=== PATIENT | female | born 1985 | race Caucasian/White ===

== ENCOUNTER → 2020-06-06 | Outpatient (CLI) | payer OTHER | END | disposition home or self-care (01) | LOC: LABWHC1 10:27 | PROVIDERS: ATTEND Dermatology | DX: L70.0 Acne vulgaris (principal) | CPT/HCPCS: 36415; 84702 ==

== ENCOUNTER → 2020-07-04 | Outpatient (CLI) | payer OTHER ==
[2020-07-04 14:29] LABS: HCT 39.7 % (34.0-46.0); HGB 13.2 gm/dL (11.4-16.0); MCH 31.3 pg (25.0-35.0); MCHC 33.2 g/dL (31.0-37.0); MCV 94.2 fL (80.0-100.0); Mean Platelet Volume 8.1; Platelet Count 251 k/uL (150-450); RBC 4.21 m/uL (3.80-5.40); WBC 4.1 k/uL (3.8-10.6)
[2020-07-04 20:06] LABS: ALT 17 U/L (8-44); AST 22 U/L (13-35); African American GFR (CKD) 139.8 (60.0-200.0); Albumin/Globulin Ratio 2.13 (1.60-3.17); Alkaline Phosphatase 105 U/L (41-126); BUN/Creat Ratio 13.33 Ratio (12.00-20.00); Calcium 9.6 mg/dL (8.7-10.3); Carbon Dioxide 25.2 mmol/L (21.6-31.8); Chloride 107 mmol/L (96-109); Globulin 2.3 g/dL (1.6-3.3); Glucose 86 mg/dL (70-110); Non-African American GFR(CKD) 120.6 (60.0-200.0); Potassium 4.4 mmol/L (3.5-5.5); Sodium 139 mmol/L (135-145); Total Bilirubin 0.5 mg/dL (0.3-1.2); Total Protein 7.2 g/dL (6.2-8.2)
[2020-07-04 20:32] LABS: HCG,Quantitative Serum <2.0 mIU/mL
[2020-07-04 20:52] LABS: HIV 2 AB Non-Reactive (Non-Reactive); HIV AB P24 Non-Reactive (Non-Reactive); HIV P24 AG Non-Reactive (Non-Reactive)
[2020-07-05 03:18] LABS: INR 0.97 (0.90-1.11); Partial Thromboplastin Time 29.5 sec (23.5-31.0); Prothrombin Time 10.5 sec (9.9-11.9)
== END | disposition home or self-care (01) ==
LOC: LABWHC1 12:12
PROVIDERS: ATTEND Plastic Surgery
DX: Z01.812 Encounter for preprocedural laboratory examination (principal)
CPT/HCPCS: 36415; 80053; 84702; 85027; 85610; 85730; 86803; 87390

== ENCOUNTER → 2022-03-13 | Outpatient (CLI) | payer BC ==
--- NOTE | 2022-03-13 14:06 | MM ---
Reason for Exam: Clinical finding. Baseline mammogram. Indicated Problems: Pain of the left side (Global) for 2 Month(s) : WITH PRESSURE. Patient History: Menarche at age 14. Patient has no children. Premenopausal. Last menstrual period: 02/27/2022 Prior Study Comparison: Patient's first Mammogram. Tissue Density: The breast tissue is extremely dense which could obscure a lesion on mammography. Findings: Analyzed By CAD. There are bilateral axillary lymph nodes are present. No suspicious focal distortion or group of microcalcifications in either breast. Overall Assessment: Incomplete: need additional imaging evaluation, BI-RAD 0 Management: Diagnostic Breast Ultrasound of the left breast. Targeted ultrasound left breast focal pain and background extremely dense tissue. Electronically signed and approved by: Owen Small M.D.
--- NOTE | 2022-03-13 14:35 | USB ---
Reason for Exam: Additional evaluation requested from abnormal screening. Patient History: Menarche at age 14. Patient has no children. Premenopausal. Technique: Method: Targeted. Findings: The lower outer quadrant of the left breast, the axilla of the left breast and the retroareolar of the left breast were scanned. Targeted ultrasound shows simple appearing 8 x 4 x 6 mm thin-walled cysts 6:00 position 4 cm distance from nipple and a larger 12 mm thin-walled cyst with thin septa 8:00 position 2 cm distance from nipple. No concerning solid mass. Overall Assessment: Benign, BI-RAD 2 Management: Screening Mammogram of both breasts at age 42. Findings consistent overall fibrocystic change. Manage patient's pain on clinical basis. Return to routine follow-up. Patient told the findings and recommendation at time of dictation. Electronically signed and approved by: Owen Small M.D.
== END | disposition home or self-care (01) ==
LOC: RADMAMWWP 13:26
PROVIDERS: ATTEND Obstetrics & Gynecology
DX: R92.8 Other abnormal and inconclusive findings on diagnostic imaging of breast (principal); N64.4 Mastodynia
CPT/HCPCS: 77066

== ENCOUNTER → 2023-12-23 | Outpatient (CLI) | payer OTHER ==
--- NOTE | 2023-12-23 13:52 | MM ---
Reason for Exam: Clinical finding. Last mammogram was performed 1 year(s) and 9 month(s) ago. Indicated Problems: Pain of the left side (Global) for 2 Year(s). Patient History: Menarche at age 14. Patient has no children. Premenopausal. Patient used Hormonal Contraceptives for 1 year. Last menstrual period: 12/16/2023 Risk Values: Lindsay 5 year model risk: 0.4%. NCI Lifetime model risk: 11.3%. Prior Study Comparison: 03/13/2022 Bilateral MG diagnostic mammo w CAD [place], [facility]. 03/13/2022 Left US breast limited , [facility]. Tissue Density: The breasts are extremely dense, which lowers the sensitivity of mammography. Findings: Analyzed By CAD. The pattern is symmetrical. No significant interval change is evident. On the mediolateral oblique view there is a 0.6 cm oval density with partially obscured margins 7 cm nipple lower outer aspect left breast. Patient complains of breast pain across the lower quadrants of the left breast. Right breast:No suspicious groups of microcalcifications, spiculated or lobular masses, architectural distortion or other secondary signs of malignancy are mammographically apparent. Overall Assessment: Incomplete: need additional imaging evaluation, BI-RAD 0 Management: Diagnostic Breast Ultrasound of the left breast. A negative mammogram report should not preclude additional follow up of suspicious palpable abnormalities. Patient should continue monthly self breast exam. A clinical breast exam by your physician is recommended on an annual basis and results should be correlated with mammographic findings. Note on Lindsay scores and lifetime risk: 1. A Lindsay score greater than 3% is considered moderate risk. If this is the case, consider specialist referral to assess eligibility for a risk reducing agent. 2. If overall lifetime risk for the development of breast cancer is 20% or higher, the patient may qualify for future screening with alternating mammogram and breast MRI. Electronically signed and approved by: Sukhjinder Gardner D.O. Radiologis
--- NOTE | 2023-12-23 15:33 | USB ---
Reason for Exam: Additional evaluation requested from abnormal screening. Patient History: Menarche at age 14. Patient has no children. Premenopausal. Patient used Hormonal Contraceptives for 1 year. Risk Values: Lindsay 5 year model risk: 0.4%. NCI Lifetime model risk: 11.3%. Technique: Method: Targeted. Prior Study Comparison: 03/13/2022 Bilateral MG diagnostic mammo w CAD [place], [facility]. Findings: The lower section of the breast of the left breast, the axilla of the left breast and the retroareolar of the left breast were scanned. Complex cystic structure is present 3:00 position 7 cm nipple measuring 1.1 x 1.1 x 0.6 cm. This has good through transmission. Short-term follow-up is recommended. There is a 1.0 x 0.4 x 0.9 cm solid lesion with a fatty hilum appears to be an intramammary lymph node 4:00 position 9 cm. Short-term follow-up is recommended. There are several cystlike structures through the inferior aspect of the left breast. This includes a 0.4 cm cyst with good through transmission and posterior wall enhancement 4:00 position. Complex cyst with a thin septation at 6:00 position is 4 cm from the nipple measuring 0.7 x 0 point for by 0.6 cm. Adjacent cyst with a thin septation measuring 0.5 x 0.8 x 0.5 cm at the 9:00 position 2 cm from nipple.. Overall Assessment: Probably benign, BI-RAD 3 Management: Diagnostic Mammogram of the left breast in 6 months. Diagnostic Breast Ultrasound of the left breast in 6 months. A clinical breast exam by your physician is recommended on an annual basis and results should be correlated with mammographic findings. This exam should not preclude additional follow-up of suspicious palpable abnormalities. Results were given to the patient verbally at the time of exam. Electronically signed and approved by: Sukhjinder Gardner D.O. Radiologis
== END | disposition home or self-care (01) ==
LOC: RADMAMWWP 12:50
PROVIDERS: ATTEND Internal Medicine
DX: R92.343 Mammographic extreme density, bilateral breasts (principal); R92.8 Other abnormal and inconclusive findings on diagnostic imaging of breast
CPT/HCPCS: 77062; 77066